=== PATIENT | female | born 2000 | race Caucasian/White ===

== ENCOUNTER 2021-01-22 12:04 | Emergency (ER) | payer OTHER, SELFPAY ==
--- NOTE | ~2021-01-22 | CT_ITS ---
EXAMINATION: CT abdomen pelvis w con DATE: 01/22/2021 13:02 INDICATION: Right lower quadrant pain TECHNIQUE: Computed tomography (CT) of the abdomen and pelvis was performed with 100 cc Omnipaque 350 intravenous contrast. The dose-length product was 321.43 mGy-cm. Automated exposure control and iter ative reconstruction technique were employed. COMPARISON: None. FINDINGS: Lung bases are unremarkable. Heart size is normal. No significant pleural or pericardial ef fusion. There is abnormal thickening of the proximal small bowel. Small amount of free fluid in the p paul. The liver, spleen, pancreas, adrenal glands and left kidney are unremarkable. There is a 3 mm right u reterovesical junction stone with mild hydronephrosis. There is delayed right nephrogram. Bladder is decompressed. Small no free fluid in the pelvis. No acute osseous abnormality. No abdominal lymphaden opathy. IMPRESSION: 1. Right ureterovesical junction stone measuring 3 mm with mild hydronephrosis and delayed nephrogram , compatible with obstruction. 2: Segmental thickening of the proximal small bowel, suspicious for enteritis. Reviewed, dictated and finalized at location B. IMPRESSION: 1. Right ureterovesical junction stone measuring 3 mm with mild hydronephrosis and delayed nephrogram, compatible with obstruction. 2: Segmental thickening of the proximal small bowel, suspicious for enteritis.
[2021-01-22 12:06] VITALS: BP 126/80; PULSE 80; RESP 18; TEMP 36.9; O2SAT 100
--- NOTE | 2021-01-22 12:21 | ED.ABDPAIN ---
HPI - Abdominal Pain General Chief Complaint: Abdominal Pain Stated Complaint: RLQ pain Time Seen by Provider: 01/22/21 12:17 Source: RN notes reviewed History of Present Illness HPI narrative: Patient presents to emergency department from home for abdominal pain. Patient states that she began to develop pain in the right lower abdomen last night that worsened today and pain is located in the right lower quadrant does not radiate described as sharp and stabbing. Associated with nausea and vomiting. Patient tried taking Tylenol at home with minimal relief. Denies any fevers or chills chest pain, shortness of breath, diarrhea or any other symptoms Related Data Home Medications Medication Instructions Recorded Confirmed drospirenone-ethinyl estradiol 1 tablet PO DAILY 01/22/21 [LORENA (26)] Allergies Allergy/AdvReac Type Severity Reaction Status Date / Time No Known Allergies Allergy Verified 01/22/21 12:38 Review of Systems Review of Systems: Narrative: Gen.: Denies fevers or chills ENT: Denies congestion Respiratory: Denies shortness of breath or cough CV: Denies chest pain or palpitations GI: See HPI denies burning, urgency, frequency or hematuria Musculoskeletal: Denies back pain or muscle pain Neuro: Denies numbness, tingling, weakness or focal weakness Skin: Denies rash Except as documented, all other systems reviewed and negative [facility] Past Medical History Medical History (Updated 01/22/21 @ 13:25 by Terrence Solano DO) Patient denies significant medical history Family History Family History (Updated 04/16/17 @ 11:49 by DOCTOR UNKNOWN) Mother Patient's mother is in good health Father Patient's father is in good health Sibling Patient's sister is in good health Social History Social History Smoking status: Never smoker Alcohol intake: never Exam Narrative: Exam Narrative: APPEARANCE: No acute distress, nontoxic, resting in bed HEENT: Normocephalic, atraumatic, OMM RESPIRATORY: No respiratory distress, clear to auscultation bilaterally with no rhonchi wheezing or rales CARDIOVASCULAR: RRR s murmur ABDOMINAL: Soft nondistended tender palpation right lower quadrant no tenderness in right upper quadrant, left upper quadrant left lower quadrant positive rebound no guarding MUSCULOSKELETAl: Moves all extremities. No clubbing, cyanosis or edema. NEURO: Awake and alert. Following commands, speech normal, no focal deficits SKIN:: Warm, dry. Normal Color PSYCHIATRIC: Normal affect/mood Course Course Emergency Course: Patient states she is feeling better this time Reviewed the CT scan with patient pain starting last night and consistent with kidney stones low suspicion for enteritis Patient states that they are feeling much better at this time. States abdominal pain has resolved. Repeat abdominal exam shows the patient's abdomen to be soft and nontender. Discussed with patient results of workup and diagnosis. Discussed need for follow-up with primary care physician, reasons to return to the emergency department in proper use of medication. Patient understands and agrees to current treatment plan Vital Signs Vital signs: Vital Signs Temperature 98.4 F 01/22/21 12:06 Pulse Rate 80 01/22/21 12:06 Respiratory Rate 18 01/22/21 12:06 Blood Pressure 126/80 01/22/21 12:06 Pulse Oximetry 100 01/22/21 12:06 Temperature 98.4 F 01/22/21 12:06 Pulse Rate 80 01/22/21 12:06 Respiratory Rate 18 01/22/21 12:06 Blood Pressure 126/80 01/22/21 12:06 Pulse Oximetry 100 01/22/21 12:06 MDM - Abdominal Pain MDM Narrative Medical decision making narrative: Patient's abdomen is soft without significant pain or signs of surgical abdomen on serial exams. Lab and x-ray evaluations are reviewed and patient is felt to be a reasonable candidate for outpatient management. Patient was instructed as to limitations of x-ray
[2021-01-22 12:23] LABS: Basophils Percent Auto 0.4 % (0.2-1.2); Eosinophils Absolute Auto 0.1 K/mm3 (0-0.3); Hematocrit 37.1 % (37.0-47.0); Hemoglobin 12.7 g/dL (12.0-15.0); Immature Granulocyte Absolute 0.02 K/mm3 (0.00-0.031); Immature Granulocyte Percent A 0.3 % (0-0.5); Lymphocytes Absolute Auto 1.14 K/mm3 (0.9-3.2); Lymphocytes Percent Auto 14.8 % (18.3-44.2); Mean Corpuscular HGB Conc 34.2 g/dl (32-36); Mean Corpuscular Hemoglobin 29.1 pg (26-34); Mean Corpuscular Volume 85.1 fl (80-100); Mean Platelet Volume 10.4 fl (7.4-10.4); Monocytes Absolute Auto 0.3 K/mm3 (0.1-0.6); Monocytes Percent Auto 4.4 % (2.6-8.5); Neutrophils Absolute Auto 6.1 K/mm3 (1.3-6.7); Neutrophils Percent Auto 79.1 % (45.5-73.1); Platelet Count Result 211 k/mm3 (150-375); Red Blood Count 4.36 M/mm3 (4.2-5.4); Red Cell Distribution Width 11.9 % (11.5-14.5); White Blood Count 7.7 K/mm3 (4.5-10.0)
[2021-01-22] MEDS: SODIUM CHLORIDE 0.9% IV 1,000 ML 999 ML IV CONT (12:31)
[2021-01-22] MEDS: ONDANSETRON INJ 4 MG/2 ML VIAL IV PUSH (12:31)
[2021-01-22] MEDS: KETOROLAC 30 MG/ML VIAL (*BKC) IV PUSH (12:32)
[2021-01-22 12:37] LABS: Alanine Aminotransferase 13 U/L (4-35); Albumin Level 4.1 g/dL (3.5-5.1); Alkaline Phosphatase 51 U/L (38-126); Anion Gap 7 mmol/L (8-16); Aspartate Amino Transferase 26 U/L (14-36); Bilirubin,Total 0.4 mg/dL (0.2-1.3); Blood Urea Nitrogen 13 mg/dL (7-17); Calcium 9.4 mg/dL (8.4-10.2); Carbon Dioxide 26 mmol/L (22-30); Chloride 105 mmol/L (98-107); Estimated CRCL calculation 90 ml/min; Estimated Glomerular Filt Rate > 60; Glucose 118 mg/dL (65-105); Lipase 112 U/L (23-300); Potassium 3.7 mmol/L (3.4-5.0); Sodium 138 mmol/L (137-145)
[2021-01-22 13:00] LABS: Add Urine Microscopic? YES; Appearance Urine Cloudy (Clear); Bacteria Urine Trace /hpf; Bilirubin Urine Negative (Negative); Blood Urine 3+ (Negative); Color Urine Yellow (Yellow); Glucose Urine UA Negative (Negative); Ketones Urine 1+ mg/dL (Negative); Leukocyte Esterase Ur Negative LEU/UL (Negative); Mucus Urine Moderate /lpf; Nitrate Urine Negative (Negative); Protein Urine 1+ mg/dL (Negative); RBC Urine >75 /hpf (0-2); Specific Grav Ur 1.029 (1.001-1.035); Squamous Epithelial Cell Urine Rare /hpf (Few); Urobilinogen Urine Negative mg/dL (<2.0); WBC Urine 0-3 /hpf
[2021-01-22] MEDS: TAMSULOSIN HCL 0.4 MG CAPSULE PO (13:24)
[2021-01-22 13:55] VITALS: BP 106/72; PULSE 78; RESP 18; TEMP 36.8; O2SAT 100
== END 2021-01-22 13:55 | disposition home or self-care (01) ==
PROVIDERS: Emergency Medicine; Emergency Provider Emergency Medicine; PCP Internal Medicine
DX: N13.2 Hydronephrosis with renal and ureteral calculous obstruction (principal)
CPT/HCPCS: 36415; 74177; 80053; 81001; 81025; 83690; 85025; 96361; 96374; 96375; 99284; A9270; J1885; J2405; J7030; Q9967